=== PATIENT | male | born 1970 | race Caucasian/White ===

== ENCOUNTER 2017-04-20 20:39 | Emergency (ER) | END 2017-04-21 01:10 | disposition left against medical advice (07) ==

== ENCOUNTER 2017-04-26 10:45 | Inpatient (IN) | END 2017-05-05 20:55 | DRG 299 ==

== ENCOUNTER 2017-05-30 14:22 | Emergency (ER) | END 2017-05-31 00:52 | disposition home or self-care (01) ==